=== PATIENT | female | born 1990 | race Caucasian/White ===

== ENCOUNTER 2017-09-11 10:58 | Inpatient (IN) | payer OTHER ==
[2017-09-11] MEDS ORDERED: Dinoprostone* 10 MG VAG.SUPP VAGINAL ONE (11:41)
[2017-09-12] MEDS: Misoprostol TAB* 100 MCG SCH ×2 (01:58→10:55)
[2017-09-12] MEDS ORDERED: Penicillin G Potassium IV* 5 MILLION.UNITS VIAL ONE (04:53)
[2017-09-12 05:08] LABS: Hematocrit 34 % (35-47); Hemoglobin 11.4 g/dl (12.0-16.0); Mean Corpuscular HGB Conc 34 g/dl (31-36); Mean Corpuscular Hemoglobin 27 pg (27-31); Mean Corpuscular Volume 81 fL (80-97); Mean Platelet Volume 9 um3 (7.4-10.4); Red Cell Distribution Width 13 % (10.5-15)
[2017-09-12] MEDS ORDERED: Penicillin G Potassium IV* 5,000,000 UNITS in NS 0.9% 100 ML* 100 ML IVPB ONE (05:15)
[2017-09-12] MEDS ORDERED: OBEPIDURAL* 250 ML EPIDURAL ONE (05:27)
[2017-09-12] MEDS ORDERED: fentaNYL* 50 MCG/ML 5 ML VIAL (250 MCG VIAL) ONE (05:29)
[2017-09-12] MEDS ORDERED: EPHEDrine (Pressors)* 50 MG/ML VIAL IV PUSH PRN (05:51)
[2017-09-12] MEDS ORDERED: Famotidine TAB* 20 MG PO PRN (05:51)
[2017-09-12] MEDS ORDERED: Sodium Citrate/Citric Acid* 15 ML UDC PO PRN (05:51)
[2017-09-12] MEDS ORDERED: Phenylephrine IV* 40 MCG/ML 10 ML SYRINGE IV PUSH PRN (05:51)
[2017-09-12] MEDS ORDERED: OBEPIDURAL* 250 ML EPIDURAL SCH (06:00)
[2017-09-12] MEDS ORDERED: Oxytocin in LR* 0 UNITS/0 ML BAG IVPB ONE (07:26)
[2017-09-12] MEDS ORDERED: Acetaminophen TAB* 325 MG PO PRN (08:04)
[2017-09-12] MEDS ORDERED: Glycerin ADULT SUPP PR PRN (08:04)
[2017-09-12] MEDS ORDERED: Simethicone TAB* 80 MG TAB.CHEW PO SCH (08:30)
[2017-09-12] MEDS ORDERED: Penicillin G Potassium IV* 2,500,000 UNITS in NS 0.9% 100 ML* 100 ML IVPB SCH (09:00)
[2017-09-12] MEDS: Witch Hazel PAD* JAR TOPICAL PRN (09:14)
[2017-09-12] MEDS: Ibuprofen TAB* 600 MG PO PRN ×2 (09:14→20:18)
[2017-09-12] MEDS: Dibucaine 1% 28.35 GM TUBE PR PRN (09:15)
[2017-09-12] MEDS ORDERED: Oxytocin in LR* 20 UNITS/1,000 ML BAG IVPB SCH (10:00)
[2017-09-12] MEDS: Docusate CAP* 100 MG PO SCH ×3 (10:59→20:18)
[2017-09-13] MEDS: Dibucaine 1% 28.35 GM TUBE PR PRN (03:01)
[2017-09-13] MEDS: Witch Hazel PAD* JAR TOPICAL PRN (03:01)
[2017-09-13] MEDS: Ibuprofen TAB* 600 MG PO PRN ×4 (03:01→22:06)
[2017-09-13 07:19] LABS: Hematocrit 29 % (35-47); Hemoglobin 9.6 g/dl (12.0-16.0); Mean Corpuscular HGB Conc 34 g/dl (31-36); Mean Corpuscular Hemoglobin 28 pg (27-31); Mean Corpuscular Volume 82 fL (80-97); Mean Platelet Volume 9 um3 (7.4-10.4); Red Blood Count 3.48 10^6/ul (4.0-5.4); Red Cell Distribution Width 14 % (10.5-15); White Blood Count 19.5 10^3/ul (3.5-10.8)
[2017-09-13] MEDS: Docusate CAP* 100 MG PO SCH ×3 (09:07→22:06)
[2017-09-13] MEDS: Ferrous Gluconate TAB* 324 MG TAB PO SCH ×2 (09:08→22:06)
[2017-09-13 20:43] VITALS: BP 119/57
[2017-09-14] MEDS: Ibuprofen TAB* 600 MG PO PRN ×2 (04:27→11:57)
[2017-09-14] MEDS: Witch Hazel PAD* JAR TOPICAL PRN (08:20)
[2017-09-14] MEDS: Dibucaine 1% 28.35 GM TUBE PR PRN (08:21)
[2017-09-14] MEDS: Docusate CAP* 100 MG PO SCH (08:21)
[2017-09-14] MEDS: Ferrous Gluconate TAB* 324 MG TAB PO SCH (08:21)
== END 2017-09-14 12:06 | disposition home or self-care (01) | DRG 560 ==
LOC: MCHOBOUT 10:58 → MCHOB 11:44
PROVIDERS: ADMIT Midwife; ATTEND Midwife
PROC: 10E0XZZ Delivery of Products of Conception, External Approach (ICD-10-PCS; principal; 2017-09-12)
PROC: 0HQ9XZZ Repair Perineum Skin, External Approach (ICD-10-PCS; 2017-09-12)
PROC: 0UQMXZZ Repair Vulva, External Approach (ICD-10-PCS; 2017-09-12)
PROC: 3E0P7VZ Introduction of Hormone into Female Reproductive, Via Natural or Artificial Opening (ICD-10-PCS; 2017-09-12)
PROC: 4A1HXCZ Monitoring of Products of Conception, Cardiac Rate, External Approach (ICD-10-PCS; 2017-09-12)
DX: O41.03X0 Oligohydramnios, third trimester, not applicable or unspecified (principal); K64.9 Unspecified hemorrhoids; O70.0 First degree perineal laceration during delivery; O99.824 Streptococcus B carrier state complicating childbirth; Z3A.40 40 weeks gestation of pregnancy; Z37.0 Single live birth; O48.0 Post-term pregnancy; O75.89 Other specified complications of labor and delivery; O90.81 Anemia of the puerperium
CPT/HCPCS: 36415; 85025; 86850; 86900; 86901; A9270-GY; J2540; J3010; S0191